=== PATIENT | male | born 1995 | race Caucasian/White ===

== ENCOUNTER 2025-08-09 19:22 | Emergency (ER) | payer BC, SELFPAY ==
[2025-08-09 19:24] VITALS: BP 153/97
[2025-08-09 19:41] LABS: Hematocrit 47.8 % (39.0-52.0); Hemoglobin 15.8 g/dL (13.0-18.0); Mean Corp Hgb Conc. 33.1 g/dL (33.0-37.0); Mean Corpuscular Volume 78.0 fL (80.0-94.0); Nucleated Red Blood Cells % 0 % (-); Platelet Count 235 10^3/uL (130-400); Red Cell Dist. Width 13.3 % (11.5-14.5)
[2025-08-09 20:02] LABS: ALT (SGPT) 31 U/L (0-50); AST (SGOT) 29 U/L (17-59); Albumin 4.8 g/dl (3.5-5.0); Alkaline Phosphatase 79 U/L (38-126); Blood Urea Nitrogen 17 mg/dl (9-20); Calcium 9.4 mg/dl (8.4-10.2); Carbon Dioxide 27 mmol/L (22-30); Chloride 103 mmol/L (98-107); Glucose 112 mg/dl (70-99); Potassium 3.8 mmol/L (3.5-5.1); Sodium 141 mmol/L (135-145); Total Protein 8.1 g/dl (6.3-8.2); eGFR > 60.00
[2025-08-09 20:14] LABS: Troponin I < 0.012 ng/ml
[2025-08-09 20:19] LABS: INR 1.02; PT 13.7 Sec (11.4-14.6)
--- NOTE | 2025-08-09 20:48 | ED.GENMED ---
History of Present Illness
General
Chief Complaint: Heart Rate Problem
Source: patient
Exam Limitations: none
Time Seen by Provider: 08/09/25 20:48
History of Present Illness
History of Present Illness:
30yoM with no significant past medical history presenting with his for evaluation of palpitations. He reports feeling like his heart is skipping beats throughout the day today. Symptoms are better with standing and worsen with sitting and at
rest. His was listening to his heartbeat and noticed that it was very irregular so he decided to come to the ED for evaluation. He denies any chest pain but has some pressure. He also transient tingling in his left fingers earlier today. No
associated shortness of breath, dizziness, syncope. He did not get enough sleep last night but otherwise denies anything unusual today. No drug or alcohol use.
Past History
Past History
ED Past Medical History: Asthma
ED Past Surgical History: Other ([place] teeth)
Social History
Tobacco: Non-smoker
Alcohol: None
Living: with roommate
Family History
Family History: Unable to obtain
Phy Exam
General Physical Exam
General Presentation: well appearing and no apparent distress
General Skin: warm and dry
General Habitus: normal
General Mental: alert
ENT Exam
ENT Exam: normocephalic
Cardiovascular Exam
Cardiovascular Exam: regular rate/rhythm, no edema and no murmur
Pulmonary Exam
Pulmonary Exam: lungs clear, no respiratory distress, no rales, no crackles, no rhonchi and no wheezing
Neurological Exam
Neurological Exam: alert
[place] Coma Scale
Eye Opening: Spontaneous
Verbal Response: Oriented
Motor Response: Obeys Commands
GCS Total Score: 15
Skin Exam
Skin Exam: normal color and warm/dry
Psychiatric Exam
Psychiatric Exam: normal mood/affect
Course
Orders/Labs/Results
Orders:
Orders
08/09/25 19:27
Electrocardiogram (*1) Urgent
Reason for Study: Chest Pain
08/09/25 19:28
EKG- Treatment ONCE
08/09/25 19:33
Complete Blood Count/With Diff Urgent
Comprehensive Metabolic Panel Urgent
Magnesium Urgent
Comment: ADD ON
Prothrombin Time Urgent
TSH Urgent
Comment: ADD ON
Troponin I Urgent
08/09/25 20:49
Add On- LAB Urgent
Tests Added?: TSH
08/09/25 21:10
Add On- LAB Urgent
Tests Added?: magnesium
Cardiac Monitoring- Treatment ONCE
Abnormal Lab Results
08/09/25
19:33
RBC 6.13 H 10^6/uL
(4.70-6.10)
MCV 78.0 L fL
(80.0-94.0)
MCH 25.8 L pg
(27.0-31.0)
Absolute Monos (auto) 0.8 H 10^3/uL
(0.1-0.6)
Glucose 112 H mg/dl
(70-99)
08/09/25 19:33
08/09/25 19:33
Vital Signs
Initial and Last Documented VS:
Initial Vital Signs
Temp Pulse Resp BP Pulse Ox
98.6 F 121 18 153/97 97
08/09/25 19:24 08/09/25 19:24 08/09/25 19:24 08/09/25 19:24 08/09/25 19:24
Last Documented Vital Signs
Temp Pulse Resp BP Pulse Ox
98.6 F 95 23 153/97 96
08/09/25 19:24 08/09/25 21:15 08/09/25 21:15 08/09/25 19:24 08/09/25 21:15
MDM/Problems Addressed
Differential Diagnosis Includes:
30yoM here with palpitations since this morning. Feels like heart is skipping beats. No dizziness or syncope. No significant PMH. Heart rate 121 in triage although heart rate in the 90-100 range on initial exam. He is well-appearing in no
distress. Patient reporting intermittent palpitations throughout assessment which correlate to PVCs on the monitor. Differential diagnosis includes but is not limited to: PVCs, arrhythmia, electrolyte abnormality, thyroid dysfunction, dehydration,
doubt ACS
Workup initiated in triage. EKG shows NSR without ectopy and intervals are normal. Troponin undetectable and remainder of labs unremarkable. TSH and magnesium added which are also normal. Patient stable for discharge. He was advised to stay
hydrated and avoid caffeine/alcohol. He was instructed to follow-up with his PCP and cardiology. ED return precautions reviewed and he was discharged in stable condition.
*Pulse Oximetry
SaO2: 97
Oxygen Mode of Delivery: Room air
Patient hypoxic: no
*EKG
Interpreted by ED Provider?: Yes
EKG Intrepretation Date: 08/09/25
Heart Rate: 107
Rate: tachycardiac
Rhythm: sinus
Trail: normal axis
Interval: normal interval
QRS Pattern: normal QRS
Ischemia: no ischemia
*Critical Care Note
Total Time (30-74mins, 75-104mins- exclusive of procedures): Not Applicable
ED Attending Note
-
Portions of this chart may have been created with voice recognition software.� Occasional wrong word or��sound alike� substitutions may have occurred due to the inherent limitations of voice recognition software.
Discharge Plan
Departure
Patient Disposition: Home (Routine Discharge)
Date of Disposition: 08/09/25
Time of Disposition: 22:17
Patient with high blood pressure during this ER visit?: Yes
Discharge Problem:
Palpitations, PVC's (premature ventricular contractions)
Instructions: Ventricular premature beats
Prescriptions:
No Action
Ceftin
1 tab PO BID
prednisone 20 MG tablet
20 mg PO DAILY Qty: 7 0RF
Referrals:
[facility] [Provider Group]
Mili Campbell NP [Family Provider, Internal Medicine]
Shahriar Woo MD [Active, Cardiology]
Activity Restrictions/Additional Instructions:
Drink plenty of fluids and stay hydrated. Avoid caffeine and alcohol intake.
Please follow-up with your family doctor and cardiology. Return to the ER with any new or worsening symptoms including passing out.
Interventions
Interventions:
*Risk Screen - Suicide Last Done: 08/09/25 19:24
*General Assessment Last Done: 08/09/25 19:24
*Neglect/Abuse Screening Last Done: 08/09/25 19:24
*ED- Fall Risk Assessment Last Done: 08/09/25 20:55
*ED COVID-19 Vaccine History Last Done: 08/09/25 20:55
*ED Influenza Vaccine History Last Done: 08/09/25 20:55
*Nursing Disposition Last Done: 08/09/25 22:26
ED- Cardiac Assessment Last Done: 08/09/25 20:55
ED- Pulmonary Assessment Last Done: 08/09/25 20:55
Discharge Date and Time
Discharge Date/Time: 08/09/25 22:26
Print Language: PORTUGUESE
[2025-08-09 20:55] VITALS: BMI 29.1
[2025-08-09 21:40] LABS: Magnesium 2.1 mg/dl (1.6-2.3)
[2025-08-09 22:00] LABS: TSH 1.23 uIU/ml (0.47-4.68)
== END 2025-08-09 22:26 | disposition home or self-care (01) ==
LOC: EMR 19:22
PROVIDERS: Emergency Medicine; EMERGENCY PHYSICIAN Emergency Medicine; FAMILY PHYSICIAN Nurse Practitioner Family
DX: R00.2 Palpitations (principal); I49.3 Ventricular premature depolarization; J45.909 Unspecified asthma, uncomplicated
CPT/HCPCS: 99283; 80053; 83735; 84443; 84484; 85025; 85610; 93005

== ENCOUNTER → 2025-10-08 14:58 | Outpatient (REF) | payer BC, SELFPAY | LOC: RCS 14:58 | PROVIDERS: ATTENDING PHYSICIAN Internal Medicine Cardiovascular Disease; FAMILY PHYSICIAN Nurse Practitioner Family | DX: I49.3 Ventricular premature depolarization (principal) | CPT/HCPCS: 93306 ==